=== PATIENT | female | born 1990 ===

== ENCOUNTER 2017-05-13 10:46 | Emergency (ER) | payer OTHER ==
[2017-05-13 10:51] VITALS: BP 129/81
[2017-05-13] MEDS ORDERED: ONDANSETRON 4 MG/2 ML VIAL IVP ONE (11:10)
[2017-05-13] MEDS ORDERED: NS(*) 0.9% 1000 ML BAG 1,000 ML IV ONE (11:10)
--- NOTE | 2017-05-13 11:13 | ER Report ---
History and Physical Time Seen By MD: 11:12 Hx. of Stated Complaint: ABDOMINAL PAIN SINCE SATURDAY. PATIENT REPORTS BLOOD IN STOOL THIS MORNING HPI/ROS 27-year-old female from [place] mitigate mid epigastric abdominal pain 2 days radiates to back has been under increased stress according to patient has had a poor appetite on this morning had 2 stools noted blood in the toilet bowl each time described the bleeding is bright red Remainder of the 14 system rev: Yes Allergies: Coded Allergies: No Known Drug Allergies (Unverified , 05/13/17) Home Meds Active Scripts Sucralfate (CARAFATE) 1 Gm Tablet, 1 GM PO QID, #120 TAB Take before meals and at bedtime. Crush the tablet and mix with water before taking. Prov:CYN BARBOSA 05/13/17 Pantoprazole Sodium (PANTOPRAZOLE SODIUM) 40 Mg Tablet.dr, 40 MG PO BID, #60 TAB.SR Prov:CYN BARBOSA 05/13/17 Past Medical/Surgical History from [place] was there last in January that she had a colonoscopy done 7 years ago in [place] for diarrhea this was negative according to patient Reviewed Nurses Notes: Yes Old Medical Records Reviewed: Yes Hx Substance Use Disorder: No Hx Alcohol Use: Yes Family History of: Other Constitutional Vital Sign - Last 24 Hours 05/13/17 10:51 Temp 99.1 Pulse 90 Resp 20 B/P (MAP) 129/81 Pulse Ox 97 O2 Delivery Room Air Intake and Output 05/13/17 05/13/17 05/14/17 15:00 23:00 07:00 Intake Total 850 ml Balance 850 ml Physical Exam General Appearance: The patient is alert, has no immediate need for airway protection and no current signs of toxicity. [Eyes:] Pupils equal and round no injection. Respiratory: Chest is non tender, lungs are clear to auscultation. Cardiac: regular rate and rhythm Gastrointestinal: Abdomen is soft and non tender, no masses, bowel sounds normal. [Musculoskeletal:] [Neck:] [Neck is supple and non tender. Extremities have full range of motion and are non tender. [Skin:] No rashes or lesions. [ Rectal exam light brown stool bright red blood [DIFFERENTIAL DIAGNOSIS: After history and physical exam differential diagnosis was considered for] upper versus lower gi bleed, o and p, Medical Decision Making Data Points Result Diagram: 05/13/17 1055 05/13/17 1055 Laboratory Hematology Test 05/13/17 10:55 05/13/17 11:04 05/13/17 11:07 Red Blood Count 5.04 M/uL (4.17-5.56) Mean Corpuscular Volume 86.3 fL (80.0-96.0) Mean Corpuscular Hemoglobin 29.5 pg (26.0-33.0) Mean Corpuscular Hemoglobin Concent 34.2 g/dL (32.0-36.0) Red Cell Distribution Width 13.4 % (11.5-14.5) Mean Platelet Volume 7.5 fL (7.2-11.1) Neutrophils (%) (Auto) 63.0 % (39.4-72.5) Lymphocytes (%) (Auto) 28.4 % (17.6-49.6) Monocytes (%) (Auto) 6.6 % (4.1-12.4) Eosinophils (%) (Auto) 1.4 % (0.4-6.7) Basophils (%) (Auto) 0.6 % (0.3-1.4) Nucleated RBC Relative Count (auto) 0.0 /100WBC Neutrophils # (Auto) 4.8 K/uL (2.0-7.4) Lymphocytes # (Auto) 2.2 K/uL (1.3-3.6) Monocytes # (Auto) 0.5 K/uL (0.3-1.0) Eosinophils # (Auto) 0.1 K/uL (0.0-0.5) Basophils # (Auto) 0.0 K/uL (0.0-0.1) Nucleated RBC Absolute Count (auto) 0.00 K/uL Sodium Level 141 mmol/L (137-145) Potassium Level 3.4 mmol/L (3.5-5.0) Chloride Level 105 mmol/L (98-107) Carbon Dioxide Level 19 mmol/L (22-31) Blood Urea Nitrogen 10 mg/dl (7-18) Creatinine 0.80 mg/dl (0.52-1.04) Glomerular Filtration Rate Calc > 60.0 Random Glucose 119 mg/dl (75-110) Lactate 2.1 mmol/L (0.7-2.1) Calcium Level 9.5 mg/dl (8.4-10.2) Total Bilirubin 0.7 mg/dl (0.2-1.3) Aspartate Amino Transf (AST/SGOT) 35 U/L (0-35) Alanine Aminotransferase (ALT/SGPT) 21 U/L (0-56) Alkaline Phosphatase 60 U/L (0-126) Total Protein 7.8 gm/dl (6.3-8.2) Albumin 4.3 g/dl (3.5-5.0) Amylase Level 75 U/L (0-110) Lipase 123 U/L (23-300) Human Chorionic Gonadotropin, Qual Negative (NEGATIVE) Helicobacter pylori IgG Antibody Negative (NEGATIVE) Urine Color Colorless Urine Clarity Clear Urine pH 6.0 pH (4.8-9.5) Urine Specific [place] 1.001 Urine Protein Negative mg/dL (NEGATIVE) Urine Glucose (UA) Negative mg/dL (NEGATIVE) Urine Ketones Negative mg/dL (NEGATIVE) Urine Blood Small (NEGATIVE) Urine Nitrite Negative (NEGATIVE) Urine Bilirubin Negative (NEGATIVE) Urine Urobilinogen Negative mg/dL (0.2-1.9) Urine Leukocyte Esterase Negative (NEGATIVE) Urine RBC <1 /HPF (0-2/HPF) Urine WBC <1 /HPF (0-5/HPF) Urine Squamous Epithelial Cells Few /LPF (</=FEW) Urine Bacteria Negative /HPF (NONE-FEW) Urine Mucus None /HPF (NONE-FEW) Stool Occult Blood (IFOB) Positive (NEGATIVE) Chemistry Test 05/13/17 10:55 05/13/17 11:04 05/13/17 11:07 White Blood Count 7.7 k/uL (4.5-11.0) Red Blood Count 5.04 M/uL (4.17-5.56) Hemoglobin 14.9 g/dL (12.0-16.0) Hematocrit 43.4 % (34.0-47.0) Mean Corpuscular Volume 86.3 fL (80.0-96.0) Mean Corpuscular Hemoglobin 29.5 pg (26.0-33.0) Mean Corpuscular Hemoglobin Concent 34.2 g/dL (32.0-36.0) Red Cell Distribution Width 13.4 % (11.5-14.5) Platelet Count 302 K/uL (150-450) Mean Platelet Volume 7.5 fL (7.2-11.1) Neutrophils (%) (Auto) 63.0 % (39.4-72.5) Lymphocytes (%) (Auto) 28.4 % (17.6-49.6) Monocytes (%) (Auto) 6.6 % (4.1-12.4) Eosinophils (%) (Auto) 1.4 % (0.4-6.7) Basophils (%) (Auto) 0.6 % (0.3-1.4) Nucleated RBC Relative Count (auto) 0.0 /100WBC Neutrophils # (Auto) 4.8 K/uL (2.0-7.4) Lymphocytes # (Auto) 2.2 K/uL (1.3-3.6) Monocytes # (Auto) 0.5 K/uL (0.3-1.0) Eosinophils # (Auto) 0.1 K/uL (0.0-0.5) Basophils # (Auto) 0.0 K/uL (0.0-0.1) Nucleated RBC Absolute Count (auto) 0.00 K/uL Glomerular Filtration Rate Calc > 60.0 Lactate 2.1 mmol/L (0.7-2.1) Calcium Level 9.5 mg/dl (8.4-10.2) Total Bilirubin 0.7 mg/dl (0.2-1.3) Aspartate Amino Transf (AST/SGOT) 35 U/L (0-35) Alanine Aminotransferase (ALT/SGPT) 21 U/L (0-56) Alkaline Phosphatase 60 U/L (0-126) Total Protein 7.8 gm/dl (6.3-8.2) Albumin 4.3 g/dl (3.5-5.0) Amylase Level 75 U/L (0-110) Lipase 123 U/L (23-300) Human Chorionic Gonadotropin, Qual Negative (NEGATIVE) Helicobacter pylori IgG Antibody Negative (NEGATIVE) Urine Color Colorless Urine Clarity Clear Urine pH 6.0 pH (4.8-9.5) Urine Specific [place] 1.001 Urine Protein Negative mg/dL (NEGATIVE) Urine Glucose (UA) Negative mg/dL (NEGATIVE) Urine Ketones Negative mg/dL (NEGATIVE) Urine Blood Small (NEGATIVE) Urine Nitrite Negative (NEGATIVE) Urine Bilirubin Negative (NEGATIVE) Urine Urobilinogen Negative mg/dL (0.2-1.9) Urine Leukocyte Esterase Negative (NEGATIVE) Urine RBC <1 /HPF (0-2/HPF) Urine WBC <1 /HPF (0-5/HPF) Urine Squamous Epithelial Cells Few /LPF (</=FEW) Urine Bacteria Negative /HPF (NONE-FEW) Urine Mucus None /HPF (NONE-FEW) Stool Occult Blood (IFOB) Positive (NEGATIVE) Urinalysis Test 05/13/17 11:04 Urine Color Colorless Urine Clarity Clear Urine pH 6.0 pH (4.8-9.5) Urine Specific [place] 1.001 Urine Protein Negative mg/dL (NEGATIVE) Urine Glucose (UA) Negative mg/dL (NEGATIVE) Urine Ketones Negative mg/dL (NEGATIVE) Urine Blood Small (NEGATIVE) Urine Nitrite Negative (NEGATIVE) Urine Bilirubin Negative (NEGATIVE) Urine Urobilinogen Negative mg/dL (0.2-1.9) Urine Leukocyte Esterase Negative (NEGATIVE) Urine RBC <1 /HPF (0-2/HPF) Urine WBC <1 /HPF (0-5/HPF) Urine Squamous Epithelial Cells Few /LPF (</=FEW) Urine Bacteria Negative /HPF (NONE-FEW) Urine Mucus None /HPF (NONE-FEW) ED Course/Re-evaluation Clinical Indication for ER IV: Hydration ED Course Lab works within normal limits noted occult blood is positive have talked to surgeon have close follow-up arranged Re-evaluation Discussed patient with Dr. Wilkerson he will follow her in the office does ask us to start her on Carafate and pantoprazole Decision to Disposition Date: May 13, 2017 Decision to Disposition Time: 12:00 Depart Departure Latest Vital Signs Vital Signs Date Time Temp Pulse Resp B/P (MAP) Pulse Ox O2 Delivery O2 Flow Rate FiO2 05/13/17 10:51 99.1 90 20 129/81 97 Room Air Impression: Primary Impression: Blood in stool Additional Impression: Abdominal pain Condition: Improved Disposition: HOME OR SELF-CARE Referrals: MARILEE DONG MD 1 Day New Scripts Sucralfate (CARAFATE) 1 Gm Tablet 1 GM PO QID, #120 TAB Take before meals and at bedtime. Crush the tablet and mix with water before taking. Prov: CYN BARBOSA ETL CONSULTANT-C 05/13/17 Pantoprazole Sodium (PANTOPRAZOLE SODIUM) 40 Mg Tablet. 40 MG PO BID, #60 TAB.SR Prov: CYN BARBOSA 05/13/17 Patient Instructions: Abdominal Pain (ED) Additional Instructions: call dr everett office today for follow up appointment Problem Qualifiers CYN BARBOSA May 13, 2017 11:13
[2017-05-13 11:18] LABS: PLATELET COUNT, AUTOMATED 302 K/uL (150-450)
[2017-05-13] MEDS ORDERED: PANT40TA65 PO (11:56)
[2017-05-13] MEDS ORDERED: SUCR1TAB85 PO (11:56)
[2017-05-15] MEDS ORDERED: GOLYTE PO (16:42)
== END 2017-05-13 12:09 | disposition home or self-care (01) ==
LOC: ER 10:59
DX: K92.1 Melena (principal); R10.13 Epigastric pain
CPT/HCPCS: 81001; 82150; 82274; 83605; 83690; 84703; 85025; 86677; 96361; 96374; 99283; J2405; J7030; 82040; 82247; 82310; 82374; 82435; 82565; 82947; 84075; 84132; 84155; 84295; 84450; 84460; 84520

== ENCOUNTER 2017-05-23 02:55 | Day surgery (SDC) | payer OTHER ==
[~2017-05-23] VITALS: Ht 147.3 cm; Wt 42.6 kg
[~2017-05-23 02:55] MED LIST: ACET-1966 PO; Birth control PO; GOLYTE PO; PANT40TA65 PO; SUCR1TAB85 PO
[2017-05-23] MEDS ORDERED: PROPOFOL EMUL(*) 10MG/ML 20 ML 40 ML ONE (08:25)
[2017-05-23] MEDS ORDERED: LIDOCAINE/SOD BICARB 8.4% SYR ID ONE (09:50)
[2017-05-23] MEDS ORDERED: NORMOSOL R SOLN(*) 1000 ML BAG 1,000 ML IV PRN (09:50)
[2017-05-23 11:00] VITALS: BP 137/79
[2017-05-23 13:38] VITALS: BP 80/58
--- NOTE | 2017-05-23 13:47 | Short(Outpt) Discharge Summary ---
Discharge Summary Reason for Hosp/Final Diag: (1) Abdominal pain Status: Acute Hospital Course & Plan: Colonoscopy completed without problems. (2) Blood in stool Status: Acute Departure Discharge to: Home, Self Care Discharge Instructions Home Meds Active Scripts Peg/Electrolytes (GOLYTELY SOLUTION) 4,000 Ml Soln, 1 GAL PO ONCE, #1 GAL 0 Refills Prov:MARILEE DONG MD 05/15/17 Sucralfate (CARAFATE) 1 Gm Tablet, 1 GM PO QID, #120 TAB Take before meals and at bedtime. Crush the tablet and mix with water before taking. Prov:CYN BARBOSA 05/13/17 Pantoprazole Sodium (PANTOPRAZOLE SODIUM) 40 Mg Tablet.dr, 40 MG PO BID, #60 TAB.SR Prov:CYN BARBOSA 05/13/17 Reported Medications Acetaminophen (TYLENOL) 325 Mg Tablet, 325 MG PO PRN, TAB 05/20/17 [ control] Unknown Strength No Conflict Check, PO QDAY 05/20/17 Follow up Referrals: General Surgery - 06/12/17 @ Surgery, General with Marilee Dong Md You have a follow up appointment scheduled with Dr. Dong on 06/12/17, at 4: 15pm. Diet: Regular Activity: As Tolerated Special Instructions: Your colonoscopy was completed without any problems and your prep was excellent (Good Job!!). I didn't find any abnormalities in your colon or rectum, no cancer, polyps, inflammation, or other problems. The blood is most likely coming from your anal canal with stool passage. The gomez will be to soften your stool and avoid straining with bowel movements. Follow the instructions provided and I will see you back in my office on 06/12/17 and we'll see how your symptoms are at that time. Problem Qualifiers (1) Abdominal pain: Abdominal location: generalized Qualified Codes: R10.84 - Generalized abdominal pain MARILEE DONG MD May 23, 2017 13:46
[2017-05-23 13:48] VITALS: BP 108/55
--- NOTE | 2017-05-23 14:00 | Post Operative Progress Note ---
Post Operative Progress Note Date: May 23, 2017 Time: 13:47 Surgeon: Pratima Dictation number: [id number] Anesthesia: TIVA by Dr. Guy Pre-Op Diagnosis: BRBPR Post-Op Diagnosis: BRISA Findings: Normal colonoscopy, excellent prep, 7 minute withdrawal time Procedure(s): Colonoscopy Specimen Removed:(May be N/A): None Complications: None Fluids: See anesthesia record Estimated Blood Loss: Minimal Date OP Note Dictated: May 23, 2017 Time OP Note Dictated: 13:52 MARILEE DONG MD May 23, 2017 14:00
[2017-05-23 14:18] VITALS: BP 108/74
[2017-05-23 14:20] VITALS: BP 105/72
--- NOTE | 2017-05-23 19:39 | OPERATIVE REPORT 1 ---
EVENT DATE: May 23, 2017 ENDOSCOPIST: Jamar Andujar MD ANESTHESIOLOGIST: Jamar Guy MD ANESTHESIA: TIVA. PREOPERATIVE DIAGNOSIS Bright red blood per rectum. POSTOPERATIVE DIAGNOSIS Bright red blood per rectum. PROCEDURE PERFORMED Colonoscopy. COMPLICATIONS None. CONDITION Stable. BLOOD LOSS Minimal. FINDINGS The patient had a normal colon. The prep was excellent. Withdrawal time was seven minutes. INDICATIONS This is a 27-year-old female who presented to my office after an ER visit complaining of bright red blood per rectum. She was wanting to have a colonoscopy to evaluate her symptoms. DESCRIPTION OF PROCEDURE The patient was brought to the endoscopy room and placed in the left lateral decubitus position on the endoscopy table. Digital rectal exam was completed, and this was unremarkable. There was no evidence of any anal mass, hemorrhoids , fissure, or gross blood. The sphincter muscles were intact. The colonoscope was set up and tested to ensure it was completely functional, then lubricated and inserted into the rectum through the anus. The scope was advanced all the way to the cecum and into the terminal ileum without any problems. It was slowly withdrawn as I looked at all mucosal surfaces for any abnormalities. When the tip was in the rectum, I retroflexed the scope to look at the anal canal and distal rectum, and this was unremarkable. The scope was straightened out, and the carbon dioxide gas was sucked out to the decompress the colon and rectum, and the scope was withdrawn. The prep was excellent. Withdrawal time was seven minutes. This was a normal study with no polyps, inflammation, or any other abnormalities. [facility]
== END 2017-05-23 14:35 | disposition home or self-care (01) ==
LOC: OR 02:55
PROVIDERS: ATTEND Surgery
DX: K62.5 Hemorrhage of anus and rectum (principal)
CPT/HCPCS: 00811; 45378; 81025; J2704

== ENCOUNTER → 2017-12-27 | Outpatient (CLI) | payer OTHER ==
--- NOTE | 2017-12-27 12:01 | RADIOLOGY IMAGING REPORT ---
FACILITY: [facility] - [place] PATIENT NAME: Ashley Alan : 1990 MR: [id number] V: [id number] EXAM DATE: ORDERING PHYSICIAN: CHAPARRITA KUO TECHNOLOGIST: Location: [facility] [place] Patient: Ashley Alan : 1990 Visit/Account:[id number] Date of Sevice: 12/27/2017 SHOULDER MIN 2 VIEWS LEFT Indication: Multiple left shoulder dislocations. Comparison: None. Findings: The left clavicle, scapula, and proximal humerus are intact and demonstrate normal alignmen t. Visualized left ribs are normal. IMPRESSION: Normal left shoulder radiograph. Report Dictated By: Lavon Chavez at 12/27/2017 11:55 AM Report E-Signed By: Lavon Chavez at 12/27/2017 11:55 AM WSN:[id number]
== END ==
LOC: RAD 10:14
PROVIDERS: ATTEND Chiropractor
DX: M25.512 Pain in left shoulder (principal)